=== PATIENT | female | born 1935 | race African-American/Black ===

== ENCOUNTER 2017-04-19 09:14 | Emergency (ER) | payer OTHER ==
[~2017-04-19] VITALS: Ht 157.5 cm; Wt 77.1 kg
[~2017-04-19 09:14] MED LIST: ADVAIR 2501 DISK W/1; ALBUTEROL17 G1; AMBIEN10 MG PO; AMBIEN5 MG; DOLOGEN CAPLET1 EACH PO; LASIX20 MG; LASIX40 MG; LEVAQUIN750 MG PO; MEDROL4 MG PO; OMEPRAZOLE40 MG PO; OSEL75CA PO; PEPCID20 MG; PLAVIX75 MG; PROVENTIL3 ML/2.5 M IH; SINGULAIR4 MG; TUSSI PRES-B L120 M1 PO; TUSSI-PRES LIQ120 ML PO; VASOTEC10 MG; XANAX1 MG; ZANTAC150 M3 PO; ZOLOFT25 MG; ZOLOFT25 MG PO; ZYNCOF 20-400120 ML PO
== END 2017-04-19 14:34 | disposition home or self-care (01) ==
LOC: ER 09:14
DX: I10 Essential (primary) hypertension (principal); J45.998 Other asthma

== ENCOUNTER → 2017-05-07 | Emergency (ER) | payer OTHER ==
[~2017-05-07] VITALS: Ht 149.9 cm; Wt 81.6 kg
[~2017-05-07] MED LIST changes: +ATENOLOL25 MG; +LEVALBUTER1.25 MG/3 IH; +NEURONTIN800 MG
== END | disposition home or self-care (01) ==
LOC: ER 09:15
DX: J45.901 Unspecified asthma with (acute) exacerbation (principal); N39.0 Urinary tract infection, site not specified; J11.1 Influenza due to unidentified influenza virus with other respiratory manifestations

== ENCOUNTER 2017-08-04 13:35 | Emergency (ER) | payer OTHER ==
[~2017-08-04] VITALS: Ht 152.4 cm; Wt 79.4 kg
== END 2017-08-04 18:31 | disposition home or self-care (01) ==
LOC: ER 13:35
DX: R06.02 Shortness of breath (principal); J11.1 Influenza due to unidentified influenza virus with other respiratory manifestations

== ENCOUNTER 2018-04-22 18:24 | Emergency (ER) | payer OTHER ==
[~2018-04-22] VITALS: Ht 152.4 cm; Wt 81.2 kg
== END 2018-04-22 21:32 | disposition home or self-care (01) ==
LOC: ER 18:24
DX: J06.9 Acute upper respiratory infection, unspecified (principal); R06.02 Shortness of breath

== ENCOUNTER 2018-07-07 17:43 | Emergency (ER) | payer OTHER ==
[~2018-07-07] VITALS: Ht 152.4 cm; Wt 77.1 kg
== END 2018-07-07 23:39 | disposition home or self-care (01) ==
LOC: ER 17:43
DX: J45.998 Other asthma (principal)

== ENCOUNTER 2018-07-16 20:04 | Emergency (ER) | payer OTHER ==
[~2018-07-16] VITALS: Ht 152.4 cm; Wt 79.4 kg
== END 2018-07-17 10:24 | disposition home or self-care (01) ==
LOC: ER 20:04
DX: J45.998 Other asthma (principal)

== ENCOUNTER 2018-08-30 13:31 | Emergency (ER) | payer OTHER ==
[~2018-08-30] VITALS: Ht 152.4 cm; Wt 81.2 kg
[2018-08-30] MEDS ORDERED: VASOTEC2.5 MG PO (14:30)
== END 2018-08-30 19:19 | disposition home or self-care (01) ==
LOC: ER 13:31
DX: J45.901 Unspecified asthma with (acute) exacerbation (principal); I16.0 Hypertensive urgency; I10 Essential (primary) hypertension

== ENCOUNTER 2018-09-09 15:36 | Emergency (ER) | payer OTHER ==
[~2018-09-09] VITALS: Ht 152.4 cm; Wt 80.7 kg
[~2018-09-09 15:36] MED LIST changes: +VASOTEC2.5 MG PO
== END 2018-09-09 19:09 | disposition home or self-care (01) ==
LOC: ER 15:36
DX: J06.9 Acute upper respiratory infection, unspecified (principal)

== ENCOUNTER 2018-10-18 15:09 | Emergency (ER) | payer OTHER ==
[~2018-10-18] VITALS: Ht 152.4 cm; Wt 81.2 kg
== END 2018-10-18 23:03 | disposition home or self-care (01) ==
LOC: ER 15:09
DX: J45.901 Unspecified asthma with (acute) exacerbation (principal)

== ENCOUNTER 2019-01-01 16:23 | Emergency (ER) | payer OTHER ==
[~2019-01-01] VITALS: Ht 160 cm; Wt 81.6 kg
[2019-01-01] MEDS ORDERED: NORVASC10 MG (16:30)
== END 2019-01-01 18:34 | disposition home or self-care (01) ==
LOC: ER 16:23
DX: I16.0 Hypertensive urgency (principal); I10 Essential (primary) hypertension; F41.1 Generalized anxiety disorder

== ENCOUNTER 2019-01-25 08:00 | Emergency (ER) | payer OTHER ==
[~2019-01-25] VITALS: Ht 152.4 cm; Wt 81.6 kg
[~2019-01-25 08:00] MED LIST changes: +NORVASC10 MG
[2019-01-25] MEDS ORDERED: SINGULAIR 10MG10 MG PO (08:25)
[2019-01-25] MEDS ORDERED: ZOLOFT50 MG PO (08:25)
[2019-01-25] MEDS ORDERED: NEURONTIN300 MG PO (08:28)
== END 2019-01-25 14:52 | disposition home or self-care (01) ==
LOC: ER 08:00
DX: J45.998 Other asthma (principal)

== ENCOUNTER → 2019-02-07 | Emergency (ER) | payer OTHER ==
[~2019-02-07] VITALS: Ht 152.4 cm; Wt 81.2 kg
[~2019-02-07] MED LIST changes: +MEDROLPACK PO; +NEURONTIN300 MG PO; +SINGULAIR 10MG10 MG PO; +TUSNEL LIQUID178 ML PO; +ZITHROMAX500 MG PO; +ZOLOFT50 MG PO
== END | disposition home or self-care (01) ==
LOC: ER 20:15
DX: J45.909 Unspecified asthma, uncomplicated (principal)

== ENCOUNTER 2019-04-18 10:10 | Inpatient (IN) | payer OTHER ==
[~2019-04-18] VITALS: Ht 152.4 cm; Wt 81.6 kg
[~2019-04-18 10:10] MED LIST changes: +AZITHROMYCIN500 MG PO
[2019-04-18] MEDS ORDERED: NEURONTIN300 MG PO (11:29)
[2019-04-18] MEDS ORDERED: NORVASC10 MG PO (11:29)
--- NOTE | 2019-04-18 11:30 | NUR ---
PACIENTE ALERTA ORIENTADA X 3 REFIERE TENER ASMA, PRESENTA TOS PRODUCTIVA Y DIFICULTAD PARA RESPIRAR SE ESCUCHA RALES AL ESCULTACION SE UBICA EN ASMA UNIT
--- NOTE | 2019-04-18 12:42 | NUR ---
PTE EVALUADA POR EL DR WILD QUIEN ORDENA EL [place]. MS Y BIRRIEL ORIENTA SOBRE EL MISMO, LO CUAL REFIERE ENTENDER, REALIZA PRUEBAS DE LABORATORIO Y ADMINISTRA MEDICAMETOS ADAN ORDEN MEDICA Y SIGUIENDO MEDIDA SASEPTICAS. ABG Y TERAPIAS RESPIRATORIAS NOTIFICADAS A MS DE TURNO.
--- NOTE | 2019-04-18 14:51 | NUR ---
TERAPIA RESPIRATORIA NOTIFICADA A MS FR[place]LIN
== END 2019-04-22 17:21 | disposition home or self-care (01) | DRG 194 ==
LOC: ER 10:10 → MEDJ 17:42
PROVIDERS: ADMIT Specialist
PROC: 4A033R1 Measurement of Arterial Saturation, Peripheral, Percutaneous Approach (ICD-10-PCS; principal; 2019-04-18)
PROC: 3E0F7GC Introduction of Other Therapeutic Substance into Respiratory Tract, Via Natural or Artificial Opening (ICD-10-PCS; 2019-04-18)
PROC: 8E0ZXY6 Isolation (ICD-10-PCS; 2019-04-18)
DX: J10.1 Influenza due to other identified influenza virus with other respiratory manifestations (principal); J45.41 Moderate persistent asthma with (acute) exacerbation; J20.0 Acute bronchitis due to Mycoplasma pneumoniae; I25.10 Atherosclerotic heart disease of native coronary artery without angina pectoris; Z95.5 Presence of coronary angioplasty implant and graft; I25.2 Old myocardial infarction; I10 Essential (primary) hypertension

== ENCOUNTER 2019-09-09 11:17 | Emergency (ER) | payer OTHER ==
[~2019-09-09] VITALS: Ht 152.4 cm; Wt 79.4 kg
[~2019-09-09 11:17] MED LIST changes: +NORVASC10 MG PO
== END 2019-09-09 17:41 | disposition left against medical advice (07) ==
LOC: ER 11:17
DX: Z53.20 Procedure and treatment not carried out because of patient's decision for unspecified reasons (principal)

== ENCOUNTER 2020-02-02 13:27 | Inpatient (IN) | payer OTHER ==
[~2020-02-02] VITALS: Ht 152.4 cm; Wt 81.6 kg
[2020-02-02] MEDS ORDERED: PROAIR HFA8.5 GM (13:34)
== END 2020-02-11 17:29 | disposition home or self-care (01) | DRG 177 ==
LOC: ER 13:27 → MEDJ 17:32
PROVIDERS: ADMIT Specialist; ATTEND Specialist
PROC: XW033E5 Introduction of Remdesivir Anti-infective into Peripheral Vein, Percutaneous Approach, New Technology Group 5 (ICD-10-PCS; principal; 2020-02-04)
DX: U07.1 COVID-19 (principal); J12.89 Other viral pneumonia; I10 Essential (primary) hypertension; J20.9 Acute bronchitis, unspecified; Z95.5 Presence of coronary angioplasty implant and graft; I25.10 Atherosclerotic heart disease of native coronary artery without angina pectoris

== ENCOUNTER 2020-02-12 09:38 | Emergency (ER) | payer OTHER ==
[~2020-02-12] VITALS: Ht 152.4 cm; Wt 72.6 kg
[~2020-02-12 09:38] MED LIST changes: +PROAIR HFA8.5 GM
== END 2020-02-12 15:30 | disposition home or self-care (01) ==
LOC: ER 09:38
DX: S20.223A Contusion of bilateral back wall of thorax, initial encounter (principal); R11.11 Vomiting without nausea; W01.198A Fall on same level from slipping, tripping and stumbling with subsequent striking against other object, initial encounter; Y93.89 Activity, other specified; Y92.128 Other place in nursing home as the place of occurrence of the external cause; Y99.8 Other external cause status

== ENCOUNTER 2020-06-15 09:42 | Emergency (ER) | payer OTHER ==
[~2020-06-15] VITALS: Ht 152.4 cm; Wt 81.6 kg
== END 2020-06-15 14:43 | disposition home or self-care (01) ==
LOC: ER 09:42
DX: J45.998 Other asthma (principal)

== ENCOUNTER 2020-10-20 13:58 | Outpatient (CLI) | payer OTHER | END 2020-10-20 14:02 | disposition home or self-care (01) | LOC: SONOGRAMA 13:58 | PROVIDERS: ATTEND Specialist | DX: Q61.02 Congenital multiple renal cysts (principal); K80.00 Calculus of gallbladder with acute cholecystitis without obstruction ==

== ENCOUNTER 2020-12-14 08:16 | Outpatient (CLI) | payer OTHER | END 2020-12-14 08:19 | disposition home or self-care (01) | LOC: RAD 08:16 | PROVIDERS: ATTEND Specialist | DX: J45.998 Other asthma (principal) ==

== ENCOUNTER 2022-10-21 15:38 | Emergency (ER) | payer OTHER ==
[~2022-10-21] VITALS: Ht 162.6 cm; Wt 86.2 kg
[~2022-10-21 15:38] MED LIST changes: +ATACAND HCT 321 EAC1; +AUGMENTIN600 MG/5 M; +CARAFATE1 GM; +MONTELUKAST SOD10 MG PO; +PANTOPRAZOLE SO40 MG PO; +PEPCID AC20 MG; +SIMVASTATIN80 MG
[2022-10-21] MEDS ORDERED: MUPIROCIN15 GM TOP (18:15)
[2022-10-21] MEDS ORDERED: CLEOCIN HCL300 MG PO (18:15)
== END 2022-10-21 19:52 | disposition home or self-care (01) ==
LOC: ER 15:38
PROVIDERS: General Practice
DX: L03.115 Cellulitis of right lower limb (principal); J45.909 Unspecified asthma, uncomplicated; I10 Essential (primary) hypertension; I73.89 Other specified peripheral vascular diseases; Z88.2 Allergy status to sulfonamides; Z91.013 Allergy to seafood; Z88.6 Allergy status to analgesic agent
CPT/HCPCS: 36415; 96365; 99284; J0696

== ENCOUNTER 2022-12-23 07:41 | Emergency (ER) | payer OTHER ==
[~2022-12-23] VITALS: Ht 152.4 cm; Wt 77.1 kg
[~2022-12-23 07:41] MED LIST changes: +CLEOCIN HCL300 MG PO; +MUPIROCIN15 GM TOP
[2022-12-23] MEDS ORDERED: GABAPENTIN300 M2 PO (08:12)
[2022-12-23 09:20] LABS: HEMATOCRIT 35.3 % (36.0-45.00); HEMOGLOBIN 11.3 g/dL (12.0-15.00); MEAN CELL VOLUME 86.3 fL (80.00-100.00); MEAN CORPUSCULAR HEMOGLOBIN 27.6 pg (27.00-32.0); PLATELET COUNT 154 K/uL (150-450); RED CELL DISTRIBUTION WIDTH 13.7 % (11.5-14.5)
[2022-12-23 10:48] LABS: CALCIUM 10.1 mg/dL (8.5-10.1); GFR 52.32; POTASSIUM 4.06 mEq/L (3.5-5.1)
== END 2022-12-23 11:24 | disposition home or self-care (01) ==
LOC: ER 07:41
PROVIDERS: General Practice
DX: R50.9 Fever, unspecified (principal); Z88.2 Allergy status to sulfonamides; Z91.013 Allergy to seafood; Z88.6 Allergy status to analgesic agent

== ENCOUNTER 2023-01-05 10:41 | Inpatient (IN) | payer OTHER ==
[~2023-01-05] VITALS: Ht 152.4 cm; Wt 81.6 kg
[~2023-01-05 10:41] MED LIST changes: +GABAPENTIN300 M2 PO
[2023-01-05 14:05] LABS: HEMATOCRIT 32.8 % (36.0-45.00); HEMOGLOBIN 10.9 g/dL (12.0-15.00); MEAN CELL VOLUME 86.1 fL (80.00-100.00); MEAN CORPUSCULAR HEMOGLOBIN 28.6 pg (27.00-32.0); MEAN CORPUSCULAR HGB CONC 33.2 g/dl (32.0-36.0); PLATELET COUNT 168 K/uL (150-450); RED BLOOD COUNT 3.81 M/uL (4.00-6.00); RED CELL DISTRIBUTION WIDTH 13.8 % (11.5-14.5)
[2023-01-05 14:31] LABS: BILIRUBIN TOTAL 0.43 mg/dL (0.3-1.2); BILIRUBIN,CONJUGATED 0.12 mg/dL (0.0-0.2); BILIRUBIN,UNCONJUGATED 0.31 mg/dL (0.0-0.6); CALCIUM 10.2 mg/dL (8.5-10.1); CREATININE SERUM 0.84 mg/dL (0.55-1.02); GFR 63.99; POTASSIUM 4.2 mEq/L (3.5-5.1); TOTAL PROTEIN 7.2 gm/dL (6.4-8.2)
[2023-01-05 16:32] LABS: URINE APPEARANCE Clear; URINE BILIRRUBIN Negative (NEGATIVE); URINE BLOOD Negative; URINE COLOR Yellow; URINE GLUCOSE Negative (NEGATIVE); URINE LEUKOCYTE Trace; URINE NITRATE Positive; URINE PROTEIN Negative (NEGATIVE); URINE UROBILINOGEN 0.2 E.U./dl
[2023-01-05 16:35] LABS: URINE BACTERIA 177.4 uL (0.0-1933); URINE RBC 2.2 uL (0.0-20.8); URINE WBC 27.6 uL (0.0-23.2)
[2023-01-05 16:37] LABS: URINE EPITHELIAL CELLS 0.9 uL (0.0-38.8)
[2023-01-05 21:40] LABS: INR 1.12; PROTHROMBIN TIME 11.7 SECONDS (9.0-11.5)
[2023-01-05 21:43] LABS: D DIMER 5.96 MG/L; PARTIAL THROMBOPLASTIN TIME 28.3 SECONDS (22.0-34.0)
[2023-01-06 18:05] LABS: PH,URINE 6.5 (5.0-8.0); URINE APPEARANCE Clear; URINE BACTERIA 181.4 uL (0.0-1933); URINE BILIRRUBIN Negative (NEGATIVE); URINE BLOOD Negative; URINE COLOR Yellow; URINE EPITHELIAL CELLS 6.8 uL (0.0-38.8); URINE GLUCOSE Negative (NEGATIVE); URINE LEUKOCYTE Negative; URINE NITRATE Negative; URINE PROTEIN Negative (NEGATIVE); URINE RBC 6.6 uL (0.0-20.8); URINE WBC 21.4 uL (0.0-23.2)
[2023-01-07 06:49] LABS: ALBUMIN 2.6 gm/dL (3.4-5.0); BILIRUBIN TOTAL 0.39 mg/dL (0.3-1.2); CALCIUM 9.7 mg/dL (8.5-10.1); CREATININE SERUM 0.74 mg/dL (0.55-1.02); GFR 74.06; GLOBULINA 3.3 G/DL (2.4-3.5); MAGNESIUM 1.5 mg/dL (1.8-2.4); PHOSPHOROUS 4.6 mg/dL (2.5-4.9); POTASSIUM 3.98 mEq/L (3.5-5.1); TOTAL PROTEIN 5.9 gm/dL (6.4-8.2)
[2023-01-07 06:58] LABS: C-REACTIVE PROTEIN 3.63 MG/DL (0.00-0.29)
[2023-01-08 07:16] LABS: HEMATOCRIT 32.2 % (36.0-45.00); HEMOGLOBIN 10.8 g/dL (12.0-15.00); MEAN CELL VOLUME 83.8 fL (80.00-100.00); MEAN CORPUSCULAR HEMOGLOBIN 28.1 pg (27.00-32.0); MEAN CORPUSCULAR HGB CONC 33.5 g/dl (32.0-36.0); PLATELET COUNT 177 K/uL (150-450); RED BLOOD COUNT 3.84 M/uL (4.00-6.00); RED CELL DISTRIBUTION WIDTH 14.1 % (11.5-14.5)
[2023-01-08] MEDS ORDERED: VITAMIN D3250 MCG (10:24)
[2023-01-08] MEDS ORDERED: FUROSEMIDE20 MG (10:24)
== END 2023-01-08 21:30 | disposition home or self-care (01) | DRG 301 ==
LOC: ER 10:41 → MEDI 20:25
PROVIDERS: General Practice; Internal Medicine Infectious Disease; ADMIT Internal Medicine; ATTEND Internal Medicine
PROC: B54DZZZ Ultrasonography of Bilateral Lower Extremity Veins (ICD-10-PCS; 2023-01-05)
PROC: 02HV33Z Insertion of Infusion Device into Superior Vena Cava, Percutaneous Approach (ICD-10-PCS; principal; 2023-01-08)
DX: I83.218 Varicose veins of right lower extremity with both ulcer of other part of lower extremity and inflammation (principal); I25.10 Atherosclerotic heart disease of native coronary artery without angina pectoris; I10 Essential (primary) hypertension; E78.5 Hyperlipidemia, unspecified; Z20.822 Contact with and (suspected) exposure to COVID-19

== ENCOUNTER 2023-02-03 09:57 | Emergency (ER) | payer OTHER ==
[~2023-02-03] VITALS: Ht 152.4 cm; Wt 70.8 kg
[~2023-02-03 09:57] MED LIST changes: +FUROSEMIDE20 MG; +VITAMIN D3250 MCG
[2023-02-03] MEDS ORDERED: SINGULAIR10 MG PO (12:03)
== END 2023-02-03 14:02 | disposition home or self-care (01) ==
LOC: ER 09:57
DX: R05.9 Cough, unspecified (principal); Z88.2 Allergy status to sulfonamides

== ENCOUNTER 2023-08-21 14:58 | Inpatient (IN) | payer OTHER ==
[~2023-08-21] VITALS: Ht 177.8 cm; Wt 68.0 kg
[~2023-08-21 14:58] MED LIST changes: +SINGULAIR10 MG PO
[2023-08-21] MEDS ORDERED: DEXTROSE 5 %-0.45 % SOD CHLORD 500 ML IV STA (19:13)
[2023-08-21] MEDS ORDERED: CEFTRIAXONE SODIUM 1,000 MG VIAL IV STA (19:14)
[2023-08-21] MEDS ORDERED: DIPHENHYDRAMINE HCL 50 MG/ML VIAL 1ML IM STA (19:15)
[2023-08-21] MEDS ORDERED: METHYLPREDNISOLONE SOD SUCC 40 MG VIAL IV STA (19:15)
[2023-08-21] MEDS ORDERED: CEFTRIAXONE SODIUM 1,000 MG VIAL ONE (19:48)
[2023-08-21] MEDS ORDERED: METHYLPREDNISOLONE SOD SUCC 40 MG VIAL ONE (19:48)
[2023-08-21] MEDS ORDERED: DIPHENHYDRAMINE HCL 50 MG/ML VIAL 1ML ONE (19:49)
[2023-08-21 20:00] LABS: HEMOGLOBIN 11.6 g/dL (12.0-15.00); MEAN CELL VOLUME 83.9 fL (80.00-100.00); MEAN CORPUSCULAR HEMOGLOBIN 27.7 pg (27.00-32.0); PLATELET COUNT 184 K/uL (150-450); RED BLOOD COUNT 4.17 M/uL (4.00-6.00); RED CELL DISTRIBUTION WIDTH 16.1 % (11.5-14.5)
[2023-08-21 20:18] LABS: PH,URINE 5.5 (5.0-8.0); URINE BILIRRUBIN Negative (NEGATIVE); URINE BLOOD Negative; URINE COLOR Yellow; URINE GLUCOSE Negative (NEGATIVE); URINE LEUKOCYTE Moderate; URINE NITRATE Positive; URINE PROTEIN 30 (NEGATIVE)
[2023-08-21 20:20] LABS: CALCIUM 9.7 mg/dL (8.5-10.1); CREATININE SERUM 0.96 mg/dL (0.55-1.02); GFR 54.85; POTASSIUM 3.94 mEq/L (3.5-5.1)
[2023-08-21 20:22] LABS: URINE EPITHELIAL CELLS 38.9 uL (0.0-38.8); URINE RBC 4.7 uL (0.0-20.8); URINE WBC 434.7 uL (0.0-23.2)
[2023-08-21 20:39] LABS: URINE BACTERIA > 9821.5 uL (0.0-1933)
[2023-08-21 20:40] LABS: URINE APPEARANCE SL CLOUDY
[2023-08-21] MEDS ORDERED: levoFLOXacin IN DEXTROSE 5 % 150 ML IV SCH (22:43)
[2023-08-21] MEDS ORDERED: ACETAMINOPHEN 500 MG GEL..CAP PO PRN (22:45)
[2023-08-21] MEDS ORDERED: ONDANSETRON HCL 4 MG in 0.9 % SODIUM CHLORIDE 50 ML IV PRN (22:45)
[2023-08-21] MEDS ORDERED: 0.9 % SODIUM CHLORIDE 1,000 ML IV SCH (22:45)
[2023-08-22 02:06] LABS: INR 1.16
[2023-08-22 02:13] LABS: D DIMER 7.18 MG/L; PARTIAL THROMBOPLASTIN TIME 27.8 SECONDS (22.0-34.0)
[2023-08-22] MEDS ORDERED: FAMOTIDINE/PF 20 MG/2 ML VIAL ONE (07:48)
[2023-08-22] MEDS ORDERED: ONDANSETRON HCL 2 MG/ML VIAL ONE (07:48)
[2023-08-22] MEDS ORDERED: levoFLOXacin IN DEXTROSE 5 % 5 MG/ML PIGGYBAG IV ONE (07:48)
[2023-08-22] MEDS ORDERED: FAMOTIDINE/PF 20 MG in 0.9 % SODIUM CHLORIDE 8 ML IV PUSH SCH (09:00)
[2023-08-22] MEDS ORDERED: IRBESARTAN 300 MG TABLET PO SCH (12:57)
[2023-08-22] MEDS ORDERED: METOPROLOL SUCCINATE 25 MG TAB.SR.24H PO SCH (12:58)
[2023-08-22] MEDS ORDERED: PERMETHRIN 60 GM TUBE TOP SCH (15:15)
[2023-08-22] MEDS ORDERED: SIMVASTATIN 20 MG TABLET PO SCH (17:00)
[2023-08-22] MEDS ORDERED: VANCOMYCIN HCL 1,000 MG in 0.9 % SODIUM CHLORIDE 250 ML IV SCH (17:00)
[2023-08-23 10:14] LABS: ALBUMIN 3.1 gm/dL (3.4-5.0); BILIRUBIN TOTAL 0.37 mg/dL (0.3-1.2); CALCIUM 9.5 mg/dL (8.5-10.1); CREATININE SERUM 0.89 mg/dL (0.55-1.02); GFR 59.86; GLOBULINA 3.4 G/DL (2.4-3.5); MAGNESIUM 1.7 mg/dL (1.8-2.4); PHOSPHOROUS 2.5 mg/dL (2.5-4.9); POTASSIUM 4.08 mEq/L (3.5-5.1); TOTAL PROTEIN 6.5 gm/dL (6.4-8.2)
[2023-08-23 10:17] LABS: C-REACTIVE PROTEIN 0.89 MG/DL (0.00-0.29)
[2023-08-23 11:00] LABS: HEMATOCRIT 32.7 % (36.0-45.00); HEMOGLOBIN 10.9 g/dL (12.0-15.00); MEAN CELL VOLUME 83.3 fL (80.00-100.00); MEAN CORPUSCULAR HEMOGLOBIN 27.8 pg (27.00-32.0); MEAN CORPUSCULAR HGB CONC 33.4 g/dl (32.0-36.0); PLATELET COUNT 184 K/uL (150-450); RED BLOOD COUNT 3.93 M/uL (4.00-6.00); RED CELL DISTRIBUTION WIDTH 16.1 % (11.5-14.5)
[2023-08-24] MEDS ORDERED: AMLODIPINE BESYLATE 5 MG TABLET PO SCH (09:00)
[2023-08-26] MEDS ORDERED: FAMOtidine 20 MG TABLET PO SCH (09:00)
[2023-08-26] MEDS ORDERED: VANCOMYCIN HCL 1,000 MG in 0.9 % SODIUM CHLORIDE 250 ML IV SCH (17:00)
[2023-08-27 07:53] LABS: HEMATOCRIT 31.9 % (36.0-45.00); HEMOGLOBIN 10.8 g/dL (12.0-15.00); MEAN CELL VOLUME 82.5 fL (80.00-100.00); MEAN CORPUSCULAR HGB CONC 33.9 g/dl (32.0-36.0); RED BLOOD COUNT 3.87 M/uL (4.00-6.00)
[2023-08-27 08:33] LABS: ALBUMIN 2.4 gm/dL (3.4-5.0); BILIRUBIN TOTAL 0.47 mg/dL (0.3-1.2); CALCIUM 8.4 mg/dL (8.5-10.1); CREATININE SERUM 0.67 mg/dL (0.55-1.02); GFR 83.06; MAGNESIUM 1.5 mg/dL (1.8-2.4); PHOSPHOROUS 2.4 mg/dL (2.5-4.9); POTASSIUM 3.45 mEq/L (3.5-5.1); TOTAL PROTEIN 5.4 gm/dL (6.4-8.2)
[2023-08-27 08:36] LABS: C-REACTIVE PROTEIN 8.32 MG/DL (0.00-0.29)
[2023-08-27 09:10] LABS: PLATELET COUNT 116 K/uL (150-450)
[2023-08-27] MEDS ORDERED: IPRATROPIUM BROMIDE 0.5 MG/2.5 ML AMPUL.NEB IH SCH (13:00)
[2023-08-27] MEDS ORDERED: GUAIFENESIN 200 MG/10 ML BLIST.PACK PO SCH (14:00)
[2023-08-29 08:43] LABS: HEMATOCRIT 29.8 % (36.0-45.00); HEMOGLOBIN 10.2 g/dL (12.0-15.00); MEAN CELL VOLUME 81.9 fL (80.00-100.00); MEAN CORPUSCULAR HEMOGLOBIN 28.1 pg (27.00-32.0); MEAN CORPUSCULAR HGB CONC 34.3 g/dl (32.0-36.0); RED BLOOD COUNT 3.64 M/uL (4.00-6.00); RED CELL DISTRIBUTION WIDTH 15.7 % (11.5-14.5)
[2023-08-29 09:26] LABS: ALBUMIN 2.2 gm/dL (3.4-5.0); BILIRUBIN TOTAL 0.44 mg/dL (0.3-1.2); CALCIUM 8.2 mg/dL (8.5-10.1); CREATININE SERUM 0.7 mg/dL (0.55-1.02); GFR 78.97; POTASSIUM 3.52 mEq/L (3.5-5.1); TOTAL PROTEIN 5.2 gm/dL (6.4-8.2)
[2023-08-29 09:27] LABS: C-REACTIVE PROTEIN 7.46 MG/DL (0.00-0.29); FERRITIN 401.1 NG/ML (8-252)
[2023-08-29 09:50] LABS: PLATELET COUNT 105 K/uL (150-450)
[2023-08-30 07:50] LABS: ALBUMIN 2.2 gm/dL (3.4-5.0); BILIRUBIN TOTAL 0.42 mg/dL (0.3-1.2); CALCIUM 8.2 mg/dL (8.5-10.1); CREATININE SERUM 0.61 mg/dL (0.55-1.02); GFR 92.56; POTASSIUM 3.84 mEq/L (3.5-5.1); TOTAL PROTEIN 5.2 gm/dL (6.4-8.2)
[2023-08-30 08:22] LABS: HEMATOCRIT 29.2 % (36.0-45.00); HEMOGLOBIN 10.1 g/dL (12.0-15.00); MEAN CELL VOLUME 81.8 fL (80.00-100.00); MEAN CORPUSCULAR HEMOGLOBIN 28.3 pg (27.00-32.0); MEAN CORPUSCULAR HGB CONC 34.6 g/dl (32.0-36.0); RED BLOOD COUNT 3.57 M/uL (4.00-6.00); RED CELL DISTRIBUTION WIDTH 15.9 % (11.5-14.5)
[2023-08-30] MEDS ORDERED: BENZONATATE 100 MG CAPSULE PO SCH (09:00)
[2023-08-30] MEDS ORDERED: FUROsemide 20 MG/2 ML VIAL IV SCH (09:00)
[2023-08-30 09:18] LABS: PLATELET COUNT 112 K/uL (150-450)
[2023-08-30] MEDS ORDERED: GUAIFENESIN/DEXTROMETHORPHAN 10ML BLIST.PACK PO SCH (09:46)
[2023-08-30] MEDS ORDERED: LEVALBUTEROL HCL 0.63 MG/3 ML SOLUTION IH SCH (09:47)
[2023-08-30 15:02] LABS: ABG PH 7.437 (7.35-7.45); ABG pCO2 35.6 mmHg (35-45); BASE EXCESS -0.2 mmol/l; BICARBONATE 23.5 mmol/l (23-25); Tco2 24.5 mmol/l
[2023-08-30 15:03] LABS: SaO2 98.2 %; allen test SATISFACTORY; o2 21 %; puncture site RADIAL RIGHT
[2023-08-30] MEDS ORDERED: IPRATROPIUM BROMIDE 0.5 MG/2.5 ML AMPUL.NEB IH SCH (17:00)
[2023-08-31 08:58] LABS: HEMATOCRIT 31.9 % (36.0-45.00); HEMOGLOBIN 10.8 g/dL (12.0-15.00); MEAN CELL VOLUME 82.4 fL (80.00-100.00); RED BLOOD COUNT 3.87 M/uL (4.00-6.00)
[2023-08-31 09:09] LABS: PLATELET COUNT 149 K/uL (150-450)
[2023-08-31 09:11] LABS: ALBUMIN 2.4 gm/dL (3.4-5.0); BILIRUBIN TOTAL 0.53 mg/dL (0.3-1.2); CALCIUM 8.5 mg/dL (8.5-10.1); CREATININE SERUM 0.68 mg/dL (0.55-1.02); GFR 81.66; GLOBULINA 3.4 G/DL (2.4-3.5); POTASSIUM 3.82 mEq/L (3.5-5.1); TOTAL PROTEIN 5.8 gm/dL (6.4-8.2)
[2023-08-31 09:23] LABS: C-REACTIVE PROTEIN 5.91 MG/DL (0.00-0.29)
[2023-08-31 10:13] LABS: FERRITIN 860.4 NG/ML (8-252)
[2023-09-01] MEDS ORDERED: BUDESONIDE 0.5 MG/2 ML AMPUL.NEB IH SCH (09:00)
[2023-09-01 09:12] LABS: HEMATOCRIT 30.9 % (36.0-45.00); HEMOGLOBIN 10.3 g/dL (12.0-15.00); MEAN CELL VOLUME 82.1 fL (80.00-100.00); MEAN CORPUSCULAR HEMOGLOBIN 27.3 pg (27.00-32.0); MEAN CORPUSCULAR HGB CONC 33.2 g/dl (32.0-36.0); PLATELET COUNT 176 K/uL (150-450); RED BLOOD COUNT 3.77 M/uL (4.00-6.00)
[2023-09-01 09:55] LABS: ALBUMIN 2.5 gm/dL (3.4-5.0); BILIRUBIN TOTAL 0.53 mg/dL (0.3-1.2); CALCIUM 8.8 mg/dL (8.5-10.1); CREATININE SERUM 0.82 mg/dL (0.55-1.02); GFR 65.79; GLOBULINA 3.7 G/DL (2.4-3.5); POTASSIUM 4.12 mEq/L (3.5-5.1); TOTAL PROTEIN 6.2 gm/dL (6.4-8.2)
[2023-09-02 08:15] LABS: HEMATOCRIT 28.3 % (36.0-45.00); HEMOGLOBIN 9.6 g/dL (12.0-15.00); MEAN CORPUSCULAR HEMOGLOBIN 27.9 pg (27.00-32.0); PLATELET COUNT 186 K/uL (150-450); RED BLOOD COUNT 3.44 M/uL (4.00-6.00); RED CELL DISTRIBUTION WIDTH 15.8 % (11.5-14.5)
[2023-09-02 09:30] LABS: ALBUMIN 2.4 gm/dL (3.4-5.0); BILIRUBIN TOTAL 0.44 mg/dL (0.3-1.2); CALCIUM 8.7 mg/dL (8.5-10.1); CREATININE SERUM 0.79 mg/dL (0.55-1.02); GFR 68.68; GLOBULINA 3.5 G/DL (2.4-3.5); POTASSIUM 4.22 mEq/L (3.5-5.1); TOTAL PROTEIN 5.9 gm/dL (6.4-8.2)
[2023-09-02 09:34] LABS: C-REACTIVE PROTEIN 2.88 MG/DL (0.00-0.29); FERRITIN 1588.2 NG/ML (8-252)
== END 2023-09-02 14:04 | disposition home or self-care (01) | DRG 602 ==
LOC: ER 14:59 → SEC-K 22:48 → MEDJ 08-22 12:50
PROVIDERS: Emergency Medicine; General Practice; Internal Medicine Infectious Disease; ADMIT Internal Medicine; ATTEND Internal Medicine
PROC: B44HZZZ Ultrasonography of Bilateral Lower Extremity Arteries (ICD-10-PCS; principal; 2023-08-21)
PROC: BB24ZZZ Computerized Tomography (CT Scan) of Bilateral Lungs (ICD-10-PCS; 2023-08-28)
PROC: 3E0F7GC Introduction of Other Therapeutic Substance into Respiratory Tract, Via Natural or Artificial Opening (ICD-10-PCS; 2023-08-28)
DX: L03.115 Cellulitis of right lower limb (principal); U07.1 COVID-19; L97.819 Non-pressure chronic ulcer of other part of right lower leg with unspecified severity; B37.49 Other urogenital candidiasis; B86 Scabies; I83.018 Varicose veins of right lower extremity with ulcer other part of lower leg; I87.2 Venous insufficiency (chronic) (peripheral); J45.909 Unspecified asthma, uncomplicated; I11.9 Hypertensive heart disease without heart failure; B95.62 Methicillin resistant Staphylococcus aureus infection as the cause of diseases classified elsewhere

== ENCOUNTER 2023-10-15 12:03 | Inpatient (IN) | payer OTHER ==
[~2023-10-15] VITALS: Ht 152.4 cm; Wt 68.0 kg
[2023-10-15] MEDS ORDERED: COZAAR25 MG (12:11)
[2023-10-15] MEDS ORDERED: CIPROFLOXACIN IN 5 % DEXTROSE 400 MG/200 ML PIGGYBAG IV STA (13:18)
[2023-10-15] MEDS ORDERED: CIPROFLOXACIN IN 5 % DEXTROSE 400 MG/200 ML PIGGYBAG IV ONE (13:23)
[2023-10-15 13:46] LABS: HEMATOCRIT 35.2 % (36.0-45.00); HEMOGLOBIN 11.6 g/dL (12.0-15.00); MEAN CELL VOLUME 87.2 fL (80.00-100.00); MEAN CORPUSCULAR HEMOGLOBIN 28.8 pg (27.00-32.0); PLATELET COUNT 179 K/uL (150-450); RED BLOOD COUNT 4.04 M/uL (4.00-6.00); RED CELL DISTRIBUTION WIDTH 16.1 % (11.5-14.5)
[2023-10-15 14:23] LABS: ALBUMIN 3.3 gm/dL (3.4-5.0); ALKALINE PHOSPHATASE 143 U/L (50-136); ALT/SGPT 21 U/L (12-78); ANION GAP 8 (10.0-20.0); AST/SGOT 19 U/L (15-37); BILIRUBIN TOTAL 0.27 mg/dL (0.3-1.2); BILIRUBIN,CONJUGATED < 0.10 mg/dL (0.0-0.2); BILIRUBIN,UNCONJUGATED 0.17 mg/dL (0.0-0.6); BLOOD UREA NITROGEN 24 mg/dL (7-18); BUN CREA RATIO 19 (7.0-25.0); CALCIUM 9.8 mg/dL (8.5-10.1); CARBON DIOXIDE 29 mEq/L (21-32); CHLORIDE 111 mmol/L (98-107); CREATININE SERUM 1.26 mg/dL (0.55-1.02); GFR 40.08; GLUCOSE FASTING 112 mg/dL (65-100); OSMOLALITY SERUM 292 MOSM/KG (275-295); POTASSIUM 4.24 mEq/L (3.5-5.1); SODIUM 144 mmol/L (136-145); TOTAL PROTEIN 7.8 gm/dL (6.4-8.2)
[2023-10-15 16:28] LABS: PH,URINE 5.5 (5.0-8.0); URINE APPEARANCE Cloudy; URINE BILIRRUBIN Negative (NEGATIVE); URINE BLOOD Negative; URINE COLOR Dark Yellow; URINE GLUCOSE Negative (NEGATIVE); URINE KETONE Trace (NEGATIVE); URINE LEUKOCYTE Large; URINE NITRATE Positive; URINE PROTEIN Trace (NEGATIVE); URINE UROBILINOGEN 0.2 E.U./dl
[2023-10-15 16:33] LABS: URINE CAST 13.13 uL (0.0-1.40); URINE EPITHELIAL CELLS 33.8 uL (0.0-38.8); URINE RBC 2.2 uL (0.0-20.8)
[2023-10-15] MEDS ORDERED: 0.9 % SODIUM CHLORIDE 1,000 ML IV SCH (21:30)
[2023-10-15] MEDS ORDERED: ACETAMINOPHEN 500 MG GEL..CAP PO PRN (21:45)
[2023-10-16 00:55] VITALS: BP 124/45
[2023-10-16] MEDS ORDERED: ACETAMINOPHEN 500 MG GEL..CAP PO ONE (01:29)
[2023-10-16 02:45] LABS: INR 1.11
[2023-10-16] MEDS ORDERED: levoFLOXacin IN DEXTROSE 5 % 500MG/100ML PIGGYBAG IV ONE (07:29)
[2023-10-16] MEDS ORDERED: FAMOTIDINE/PF 20 MG/2 ML VIAL ONE (07:30)
[2023-10-16 08:02] VITALS: BP 148/70; O2SAT 100
[2023-10-16] MEDS ORDERED: levoFLOXacin IN DEXTROSE 5 % 100 ML IV SCH (09:00)
[2023-10-16] MEDS ORDERED: FAMOTIDINE/PF 20 MG in 0.9 % SODIUM CHLORIDE 8 ML IV PUSH SCH (09:00)
[2023-10-16] MEDS ORDERED: LOSARTAN POTASSIUM 25 MG TABLET PO SCH (09:00)
[2023-10-16 15:36] VITALS: BP 161/68; O2SAT 99
[2023-10-16] MEDS ORDERED: MONTELUKAST SODIUM 10 MG TABLET PO SCH (17:00)
[2023-10-16] MEDS ORDERED: LACTOBACILLUS ACIDOPHILUS 1 CAP CAP PO SCH (17:00)
[2023-10-16] MEDS ORDERED: VANCOMYCIN HCL 1,000 MG VIAL IV SCH (17:00)
[2023-10-16 18:57] VITALS: BP 160/72; O2SAT 98
[2023-10-17] VITALS: BP 151/66
[2023-10-17 06:15] LABS: HEMOGLOBIN 11.1 g/dL (12.0-15.00); MEAN CELL VOLUME 86.9 fL (80.00-100.00); MEAN CORPUSCULAR HEMOGLOBIN 29.3 pg (27.00-32.0); MEAN CORPUSCULAR HGB CONC 33.7 g/dl (32.0-36.0); PLATELET COUNT 162 K/uL (150-450); RED BLOOD COUNT 3.79 M/uL (4.00-6.00); RED CELL DISTRIBUTION WIDTH 15.2 % (11.5-14.5)
[2023-10-17 06:59] LABS: ALBUMIN 2.8 gm/dL (3.4-5.0); BILIRUBIN TOTAL 0.33 mg/dL (0.3-1.2); CALCIUM 9.2 mg/dL (8.5-10.1); CREATININE SERUM 0.71 mg/dL (0.55-1.02); GFR 77.69; GLOBULINA 3.4 G/DL (2.4-3.5); MAGNESIUM 1.7 mg/dL (1.8-2.4); PHOSPHOROUS 3.6 mg/dL (2.5-4.9); POTASSIUM 4.27 mEq/L (3.5-5.1); TOTAL PROTEIN 6.2 gm/dL (6.4-8.2)
[2023-10-17 07:00] LABS: C-REACTIVE PROTEIN 1.37 MG/DL (0.00-0.29)
[2023-10-17 08:27] VITALS: BP 150/70
[2023-10-17] MEDS ORDERED: FAMOTIDINE/PF 20 MG/2 ML VIAL ONE (08:38)
[2023-10-17] MEDS ORDERED: MUPIROCIN 15 GM OINT..GM TUBE NASAL SCH (17:00)
[2023-10-17] MEDS ORDERED: MUPIROCIN 22 GM OINT..GM TUBE NASAL SCH (17:00)
[2023-10-17] MEDS ORDERED: KETOROLAC TROMETHAMINE 30 MG VIAL IV PRN (18:00)
[2023-10-17 18:27] VITALS: BP 156/58; O2SAT 97
[2023-10-17] MEDS ORDERED: CHLORHEXIDINE GLUCONATE 120 ML BOTTLE TOP SCH (21:00)
[2023-10-18 02:39] VITALS: BP 172/76; O2SAT 99
[2023-10-18 08:57] VITALS: BP 152/75
[2023-10-18] MEDS ORDERED: levoFLOXacin IN DEXTROSE 5 % 150 ML IV SCH (09:00)
[2023-10-18 17:53] VITALS: BP 159/74; O2SAT 98
[2023-10-19 02:30] VITALS: BP 160/81; O2SAT 99
[2023-10-19 07:59] LABS: HEMATOCRIT 36.7 % (36.0-45.00); HEMOGLOBIN 12.3 g/dL (12.0-15.00); MEAN CELL VOLUME 87.5 fL (80.00-100.00); MEAN CORPUSCULAR HEMOGLOBIN 29.4 pg (27.00-32.0); MEAN CORPUSCULAR HGB CONC 33.6 g/dl (32.0-36.0); PLATELET COUNT 196 K/uL (150-450); RED CELL DISTRIBUTION WIDTH 15.5 % (11.5-14.5)
[2023-10-19 08:28] LABS: CALCIUM 9.3 mg/dL (8.5-10.1); CREATININE SERUM 0.83 mg/dL (0.55-1.02); GFR 64.88; POTASSIUM 4.33 mEq/L (3.5-5.1)
[2023-10-19 10:26] VITALS: BP 135/70
[2023-10-19 17:44] VITALS: BP 177/74; O2SAT 98
[2023-10-20 02:28] VITALS: BP 145/73; O2SAT 98
[2023-10-20 10:11] VITALS: BP 157/80
[2023-10-20] MEDS ORDERED: MEROPENEM 500 MG/VIAL VIAL IV SCH (17:00)
[2023-10-20] MEDS ORDERED: VANCOMYCIN HCL 5 MG/ML REDILUIDO IV SCH (17:00)
[2023-10-20] MEDS ORDERED: DIPHENHYDRAMINE HCL 50 MG/ML VIAL 1ML IV SCH (17:00)
[2023-10-20 18:52] VITALS: BP 176/75
[2023-10-21 02:09] VITALS: BP 176/66
[2023-10-21] MEDS ORDERED: FAMOTIDINE/PF 20 MG/2 ML VIAL ONE (08:24)
[2023-10-21 08:35] LABS: ALBUMIN 2.8 gm/dL (3.4-5.0); BILIRUBIN TOTAL 0.42 mg/dL (0.3-1.2); CALCIUM 9.5 mg/dL (8.5-10.1); CREATININE SERUM 0.72 mg/dL (0.55-1.02); GFR 76.44; GLOBULINA 3.7 G/DL (2.4-3.5); MAGNESIUM 1.8 mg/dL (1.8-2.4); PHOSPHOROUS 3.7 mg/dL (2.5-4.9); POTASSIUM 4.83 mEq/L (3.5-5.1); TOTAL PROTEIN 6.5 gm/dL (6.4-8.2)
[2023-10-21 09:12] VITALS: BP 180/88; O2SAT 100
[2023-10-21 13:55] LABS: HEMATOCRIT 35.6 % (36.0-45.00); HEMOGLOBIN 11.8 g/dL (12.0-15.00); MEAN CELL VOLUME 86.7 fL (80.00-100.00); MEAN CORPUSCULAR HEMOGLOBIN 28.8 pg (27.00-32.0); MEAN CORPUSCULAR HGB CONC 33.2 g/dl (32.0-36.0); PLATELET COUNT 166 K/uL (150-450); RED BLOOD COUNT 4.11 M/uL (4.00-6.00); RED CELL DISTRIBUTION WIDTH 15.9 % (11.5-14.5)
[2023-10-21 17:32] LABS: URINE APPEARANCE Clear; URINE BILIRRUBIN Negative (NEGATIVE); URINE BLOOD Negative; URINE COLOR Yellow; URINE GLUCOSE Negative (NEGATIVE); URINE KETONE Negative (NEGATIVE); URINE LEUKOCYTE Trace; URINE NITRATE Negative; URINE PROTEIN 30 (NEGATIVE); URINE UROBILINOGEN 0.2 E.U./dl
[2023-10-21 17:35] LABS: URINE BACTERIA 28.9 uL (0.0-1933); URINE EPITHELIAL CELLS 27.8 uL (0.0-38.8); URINE RBC 14.3 uL (0.0-20.8)
[2023-10-21 17:43] LABS: URINE CAST 1.37 uL (0.0-1.40)
[2023-10-21 19:30] VITALS: BP 160/74
[2023-10-21] MEDS ORDERED: NIFEDIPINE 30 MG TAB.SA.OSM PO SCH (21:16)
[2023-10-22 03:26] VITALS: BP 128/72; O2SAT 99
[2023-10-22] MEDS ORDERED: FAMOtidine 20 MG TABLET PO SCH (09:00)
[2023-10-22 09:22] VITALS: BP 145/76
[2023-10-22 18:09] VITALS: BP 172/69
[2023-10-22] MEDS ORDERED: BENZONATATE 100 MG CAPSULE PO SCH (21:18)
[2023-10-23 01:46] VITALS: BP 154/77; O2SAT 98
[2023-10-23] MEDS ORDERED: BENZONATATE 200 MG CAPSULE PO SCH (09:00)
[2023-10-23 09:22] VITALS: BP 134/69
[2023-10-23] MEDS ORDERED: ACETAMINOPHEN 500 MG GEL..CAP PO PRN (14:45)
[2023-10-23 17:46] VITALS: BP 142/67
[2023-10-24 02:38] VITALS: BP 132/73; O2SAT 98
[2023-10-24 09:25] VITALS: BP 142/73; O2SAT 96
[2023-10-24 19:16] VITALS: BP 141/61
[2023-10-25 04:08] VITALS: BP 148/65; O2SAT 100
[2023-10-25 10:23] VITALS: BP 135/63
[2023-10-25] MEDS ORDERED: LEVALBUTEROL HCL 0.63 MG/3 ML SOLUTION IH SCH (17:00)
[2023-10-25] MEDS ORDERED: GUAIFENESIN/DEXTROMETHORPHAN 10ML BLIST.PACK PO SCH (18:00)
[2023-10-25 19:24] VITALS: BP 134/70; O2SAT 97
[2023-10-26 02:26] VITALS: BP 122/66; O2SAT 97
[2023-10-26 08:56] LABS: HEMATOCRIT 33.4 % (36.0-45.00); MEAN CELL VOLUME 88.4 fL (80.00-100.00); MEAN CORPUSCULAR HEMOGLOBIN 29.3 pg (27.00-32.0); MEAN CORPUSCULAR HGB CONC 33.1 g/dl (32.0-36.0); PLATELET COUNT 155 K/uL (150-450); RED BLOOD COUNT 3.78 M/uL (4.00-6.00); RED CELL DISTRIBUTION WIDTH 15.7 % (11.5-14.5)
[2023-10-26 09:08] LABS: ALBUMIN 2.9 gm/dL (3.4-5.0); CALCIUM 9.5 mg/dL (8.5-10.1); CREATININE SERUM 0.72 mg/dL (0.55-1.02); GFR 76.44; PHOSPHOROUS 3.6 mg/dL (2.5-4.9); POTASSIUM 4.2 mEq/L (3.5-5.1)
[2023-10-26 09:41] VITALS: BP 132/50
[2023-10-26 20:44] VITALS: BP 154/68; O2SAT 97
[2023-10-27 03:06] VITALS: BP 152/70; O2SAT 99
[2023-10-27 09:54] VITALS: BP 139/78
[2023-10-27 16:00] VITALS: BP 169/79
[2023-10-27] MEDS ORDERED: METHYLPREDNISOLONE SOD SUCC 40 MG VIAL IV SCH (17:00)
[2023-10-28 03:03] VITALS: BP 170/92
[2023-10-28 10:03] VITALS: BP 175/79; O2SAT 96
[2023-10-28] MEDS ORDERED: NIFEDIPINE ER30 M1 PO (17:31)
[2023-10-28 19:02] VITALS: BP 150/80; O2SAT 98
== END 2023-10-28 20:59 | disposition home or self-care (01) | DRG 571 ==
LOC: ER 12:05 → MEDJ 22:10 → SEC-K 22:10 → MEDJ 10-16 15:24
PROVIDERS: General Practice; Internal Medicine; Internal Medicine Infectious Disease; ADMIT Internal Medicine; ATTEND Internal Medicine
PROC: B54BZZZ Ultrasonography of Right Lower Extremity Veins (ICD-10-PCS; 2023-10-15)
PROC: 0JBP0ZZ Excision of Left Lower Leg Subcutaneous Tissue and Fascia, Open Approach (ICD-10-PCS; principal; 2023-10-16)
PROC: 3E0F7GC Introduction of Other Therapeutic Substance into Respiratory Tract, Via Natural or Artificial Opening (ICD-10-PCS; 2023-10-25)
DX: L03.116 Cellulitis of left lower limb (principal); L97.219 Non-pressure chronic ulcer of right calf with unspecified severity; L97.829 Non-pressure chronic ulcer of other part of left lower leg with unspecified severity; N39.0 Urinary tract infection, site not specified; L03.115 Cellulitis of right lower limb; I83.012 Varicose veins of right lower extremity with ulcer of calf; L30.8 Other specified dermatitis; B35.3 Tinea pedis; J98.01 Acute bronchospasm; M25.512 Pain in left shoulder; M75.32 Calcific tendinitis of left shoulder; D64.9 Anemia, unspecified; B96.20 Unspecified Escherichia coli [E. coli] as the cause of diseases classified elsewhere; Z88.2 Allergy status to sulfonamides; Z88.6 Allergy status to analgesic agent; Z91.013 Allergy to seafood

== ENCOUNTER 2024-01-28 10:56 | Outpatient (CLI) | payer OTHER ==
[~2024-01-28 10:56] MED LIST changes: +COZAAR25 MG; +NIFEDIPINE ER30 M1 PO
== END 2024-01-28 11:09 | disposition home or self-care (01) ==
LOC: MRI 10:56
PROVIDERS: ATTEND Physical Medicine & Rehabilitation Pain Medicine
DX: M48.07 Spinal stenosis, lumbosacral region (principal)
CPT/HCPCS: 72148

== ENCOUNTER 2024-03-06 19:41 | Inpatient (IN) | payer OTHER ==
[~2024-03-06] VITALS: Ht 157.5 cm; Wt 77.1 kg
[2024-03-06] MEDS ORDERED: SIMVASTATIN20 MG PO (20:12)
[2024-03-06] MEDS ORDERED: AMLODIPINE BESY10 MG PO (20:12)
[2024-03-06] MEDS ORDERED: LOSARTAN POTAS100 MG PO (20:12)
[2024-03-06] MEDS ORDERED: METOPROLOL SUCC50 MG PO (20:13)
[2024-03-06] MEDS ORDERED: levoFLOXacin IN DEXTROSE 5 % 500MG/100ML PIGGYBAG IV ONE ×2 (21:00→22:29)
[2024-03-06] MEDS ORDERED: NIFEDIPINE 10 MG CAPSULE PO ONE (21:00)
[2024-03-06] MEDS ORDERED: IPRATROPIUM BROMIDE 0.5 MG/2.5 ML AMPUL.NEB IH ONE ×2 (21:00→21:51)
[2024-03-06] MEDS ORDERED: LEVALBUTEROL HCL 1.25 MG/3 ML SOLUTION IH ONE ×2 (21:00→21:51)
[2024-03-06] MEDS ORDERED: FAMOtidine 10 MG/ML (4ML VIAL) IV ONE (21:00)
[2024-03-06] MEDS ORDERED: METHYLPREDNISOLONE SOD SUCC 40 MG VIAL IV ONE (22:15)
[2024-03-06 22:16] LABS: ABG PH 7.474 (7.35-7.45); ABG PO2 77.6 mmHg (80-100); ABG pCO2 35.5 mmHg (35-45); BASE EXCESS 2.2 mmol/l; BICARBONATE 25.5 mmol/l (23-25); SaO2 96.3 %; Tco2 26.6 mmol/l; o2 21 %
[2024-03-06 22:17] LABS: allen test SATISFACTORY; puncture site RADIAL LEFT
[2024-03-06] MEDS ORDERED: METHYLPREDNISOLONE SOD SUCC 40 MG VIAL ONE (22:29)
[2024-03-06] MEDS ORDERED: ACETAMINOPHEN 500 MG GEL..CAP PO ONE (22:29)
[2024-03-06] MEDS ORDERED: FAMOTIDINE/PF 20 MG/2 ML VIAL ONE (22:30)
[2024-03-06] MEDS ORDERED: ACETAMINOPHEN 325 MG TABLET PO ONE (22:30)
[2024-03-06] MEDS ORDERED: TRAMADOL HCL 50 MG TABLET PO ONE (22:30)
[2024-03-06 23:37] LABS: HEMATOCRIT 31.6 % (36.0-45.00); HEMOGLOBIN 10.7 g/dL (12.0-15.00); MEAN CELL VOLUME 85.1 fL (80.00-100.00); MEAN CORPUSCULAR HEMOGLOBIN 28.8 pg (27.00-32.0); MEAN CORPUSCULAR HGB CONC 33.8 g/dl (32.0-36.0); PLATELET COUNT 178 K/uL (150-450); RED BLOOD COUNT 3.71 M/uL (4.00-6.00)
[2024-03-06 23:40] LABS: PH,URINE 7.5 (5.0-8.0); URINE APPEARANCE Clear; URINE BILIRRUBIN Negative (NEGATIVE); URINE BLOOD Small; URINE COLOR Yellow; URINE GLUCOSE Negative (NEGATIVE); URINE KETONE Negative (NEGATIVE); URINE LEUKOCYTE Negative; URINE NITRATE Negative; URINE UROBILINOGEN 0.2 E.U./dl
[2024-03-06 23:44] LABS: URINE BACTERIA 7.3 uL (0.0-1933); URINE RBC 14.2 uL (0.0-20.8)
[2024-03-06 23:58] LABS: ALBUMIN 3.1 gm/dL (3.4-5.0); BILIRUBIN TOTAL 0.56 mg/dL (0.3-1.2); CALCIUM 9.7 mg/dL (8.5-10.1); CREATININE SERUM 0.7 mg/dL (0.55-1.02); GFR 78.79; GLOBULINA 4.1 G/DL (2.4-3.5); POTASSIUM 3.87 mEq/L (3.5-5.1); TOTAL PROTEIN 7.2 gm/dL (6.4-8.2); URINE CAST 0.14 uL (0.0-1.40); URINE EPITHELIAL CELLS 0.9 uL (0.0-38.8); URINE PROTEIN 100 (NEGATIVE); URINE WBC 1.2 uL (0.0-23.2)
[2024-03-07 00:39] LABS: D DIMER 2.85 MG/L
[2024-03-07] MEDS ORDERED: 0.9 % SODIUM CHLORIDE 1,000 ML IV STA (01:13)
[2024-03-07] MEDS ORDERED: NITROGLYCERIN IN 5 % DEXTROSE 50 MG/250 ML KIT IV STA (01:15)
[2024-03-07] MEDS ORDERED: METHYLPREDNISOLONE SOD SUCC 125 MG VIAL IV STA (01:17)
[2024-03-07] MEDS ORDERED: IPRATROPIUM/ALBUTEROL SULFATE 3 ML AMPUL.NEB IH SCH (01:17)
[2024-03-07] MEDS ORDERED: FUROsemide 20 MG/2 ML VIAL IV STA (01:22)
[2024-03-07] MEDS ORDERED: IPRATROPIUM/ALBUTEROL SULFATE 3 ML AMPUL.NEB IH ONE ×3 (01:26→12:09)
[2024-03-07] MEDS ORDERED: METHYLPREDNISOLONE SOD SUCC 125 MG VIAL ONE (01:32)
[2024-03-07] MEDS ORDERED: FUROsemide 20 MG/2 ML VIAL ONE (01:32)
[2024-03-07] MEDS ORDERED: NITROGLYCERIN IN 5 % DEXTROSE 50 MG/250 ML BOTTLE IV ONE (01:33)
[2024-03-07] MEDS ORDERED: METHYLPREDNISOLONE SOD SUCC 40 MG VIAL IV SCH (09:00)
[2024-03-07] MEDS ORDERED: LOSARTAN POTASSIUM 100 MG TABLET PO ONE (14:45)
[2024-03-07] MEDS ORDERED: METOPROLOL SUCCINATE 50 MG TAB.SR.24H PO SCH (15:00)
[2024-03-07] MEDS ORDERED: SIMVASTATIN 20 MG TABLET PO SCH (15:00)
[2024-03-07] MEDS ORDERED: MONTELUKAST SODIUM 10 MG TABLET PO SCH (15:00)
[2024-03-07] MEDS ORDERED: GABAPENTIN 300 MG CAPSULE PO ONE (15:00)
[2024-03-07] MEDS ORDERED: IPRATROPIUM BROMIDE 0.5 MG/2.5 ML AMPUL.NEB IH ONE (16:45)
[2024-03-07] MEDS ORDERED: FUROsemide 20 MG/2 ML VIAL IV SCH (18:07)
[2024-03-07] MEDS ORDERED: ENOXAPARIN SODIUM 80 MG/0.8 ML SYRINGE SUBCUTANEO SCH (18:13)
[2024-03-07] MEDS ORDERED: ATORVASTATIN CALCIUM 20 MG TABLET PO SCH (18:13)
[2024-03-07] MEDS ORDERED: NITROGLYCERIN IN 5 % DEXTROSE 250 ML IV SCH (18:15)
[2024-03-07] MEDS ORDERED: INSULIN LISPRO 1,000 UNIT/10 ML UNITS SUBCUTANEO PRN (18:30)
[2024-03-07] MEDS ORDERED: AZITHROMYCIN 500 MG VIAL IV SCH (18:30)
[2024-03-07] MEDS ORDERED: DEXTROSE 50 % IN WATER 0.5 G/ML DISP.SYRIN IV PRN (18:30)
[2024-03-07] MEDS ORDERED: FAMOTIDINE/PF 20 MG in 0.9 % SODIUM CHLORIDE 8 ML IV PUSH SCH (18:31)
[2024-03-07 23:33] LABS: INR 1.31; PARTIAL THROMBOPLASTIN TIME 33.1 SECONDS (22.0-34.0)
[2024-03-07 23:38] LABS: ALBUMIN 2.8 gm/dL (3.4-5.0); BILIRUBIN TOTAL 0.31 mg/dL (0.3-1.2); CALCIUM 9.3 mg/dL (8.5-10.1); CREATININE SERUM 0.99 mg/dL (0.55-1.02); GFR 52.81; GLOBULINA 4.8 G/DL (2.4-3.5); POTASSIUM 4.25 mEq/L (3.5-5.1); TOTAL PROTEIN 7.6 gm/dL (6.4-8.2)
[2024-03-08] VITALS (8 sets, daily range): BP systolic 128–171; BP diastolic 63–80; O2SAT 93–98
[2024-03-08] MEDS ORDERED: NITROGLYCERIN IN 5 % DEXTROSE 250 ML IV SCH (06:30)
[2024-03-08 07:25] LABS: URINE BACTERIA 25.7 uL (0.0-1933); URINE EPITHELIAL CELLS 4.2 uL (0.0-38.8); URINE RBC 14.5 uL (0.0-20.8); URINE WBC 7.2 uL (0.0-23.2)
[2024-03-08] MEDS ORDERED: AZITHROMYCIN 500 MG VIAL IV ONE (07:47)
[2024-03-08 08:14] LABS: URINE APPEARANCE CLEAR; URINE BILIRRUBIN NEGATIVE (NEGATIVE); URINE BLOOD MODERATE; URINE COLOR YELLOW; URINE GLUCOSE NEGATIVE (NEGATIVE); URINE KETONE NEGATIVE (NEGATIVE); URINE LEUKOCYTE NEGATIVE; URINE NITRATE NEGATIVE; URINE PROTEIN 30 (NEGATIVE); URINE UROBILINOGEN 0.2 E.U./dl
[2024-03-08] MEDS ORDERED: HALOPERIDOL LACTATE 5 MG/ML AMPUL IM NR (10:45)
[2024-03-09] VITALS (9 sets, daily range): BP systolic 145–176; BP diastolic 74–80; O2SAT 95–98
[2024-03-09] MEDS ORDERED: AZITHROMYCIN 500 MG VIAL IV ONE (08:26)
[2024-03-09] MEDS ORDERED: PANTOPRAZOLE SODIUM 40 MG/VIAL VIAL IV NR (10:00)
[2024-03-09] MEDS ORDERED: levoFLOXacin IN DEXTROSE 5 % 500MG/100ML PIGGYBAG IV NR (10:00)
[2024-03-09] MEDS ORDERED: METOPROLOL SUCCINATE 25 MG TAB.SR.24H PO NR (10:00)
[2024-03-09] MEDS ORDERED: BUDESONIDE 0.5 MG/2 ML AMPUL.NEB IH NR (10:00)
[2024-03-09] MEDS ORDERED: LOSARTAN POTASSIUM 50 MG TABLET PO NR (10:00)
[2024-03-09] MEDS ORDERED: HALOPERIDOL 1 MG TABLET PO NR (10:00)
[2024-03-09] MEDS ORDERED: FLUCONAZOLE IN NACL,ISO-OSM 200 MG/100 ML PIGGYBAG IV NR (10:00)
[2024-03-09 14:48] LABS: HEMATOCRIT 30.2 % (36.0-45.00); MEAN CELL VOLUME 85.3 fL (80.00-100.00); MEAN CORPUSCULAR HGB CONC 33.5 g/dl (32.0-36.0); PLATELET COUNT 217 K/uL (150-450); RED BLOOD COUNT 3.54 M/uL (4.00-6.00); RED CELL DISTRIBUTION WIDTH 15.3 % (11.5-14.5)
[2024-03-09 14:56] LABS: HEMOGLOBIN 10.1 g/dL (12.0-15.00); MEAN CORPUSCULAR HEMOGLOBIN 28.5 pg (27.00-32.0)
[2024-03-09 15:33] LABS: ALBUMIN 2.5 gm/dL (3.4-5.0); BILIRUBIN TOTAL 0.33 mg/dL (0.3-1.2); CALCIUM 8.4 mg/dL (8.5-10.1); CREATININE SERUM 0.93 mg/dL (0.55-1.02); GFR 56.76; GLOBULINA 3.9 G/DL (2.4-3.5); POTASSIUM 3.61 mEq/L (3.5-5.1); TOTAL PROTEIN 6.4 gm/dL (6.4-8.2)
[2024-03-09] MEDS ORDERED: AMLODIPINE BESYLATE 5 MG TABLET PO SCH (17:00)
[2024-03-09] MEDS ORDERED: HALOPERIDOL 1 MG TABLET PO SCH (17:00)
[2024-03-09] MEDS ORDERED: DIPHENHYDRAMINE HCL 25 MG CAPSULE PO SCH (21:00)
[2024-03-09] MEDS ORDERED: BUDESONIDE 0.5 MG/2 ML AMPUL.NEB IH SCH (21:00)
[2024-03-09] MEDS ORDERED: GABAPENTIN 300 MG CAPSULE PO SCH (21:00)
[2024-03-10 03:09] VITALS: BP 114/61; O2SAT 95
[2024-03-10 06:27] VITALS: O2SAT 90
[2024-03-10] MEDS ORDERED: LOSARTAN POTASSIUM 50 MG TABLET PO SCH (09:00)
[2024-03-10] MEDS ORDERED: PANTOPRAZOLE SODIUM 40 MG/VIAL VIAL IV PUSH SCH (09:00)
[2024-03-10] MEDS ORDERED: levoFLOXacin IN DEXTROSE 5 % 100 ML IV SCH (09:00)
[2024-03-10] MEDS ORDERED: METOPROLOL SUCCINATE 25 MG TAB.SR.24H PO SCH (09:00)
[2024-03-10] MEDS ORDERED: FLUCONAZOLE IN NACL,ISO-OSM 100 ML IV SCH (09:00)
[2024-03-10] MEDS ORDERED: ENOXAPARIN SODIUM 40 MG/0.4 ML SYRINGE SUBCUTANEO SCH (09:00)
[2024-03-10] MEDS ORDERED: ISOSORBIDE MONONITRATE 30 MG TABLET PO SCH (09:00)
[2024-03-10 09:56] VITALS: BP 110/55; O2SAT 97
[2024-03-10 16:15] LABS: T4 FREE 2.02 NG/ML (0.76-1.46); TSH < 0.005 uIU/mL (0.358-3.74)
[2024-03-10 17:21] VITALS: O2SAT 95
[2024-03-10 18:03] VITALS: BP 175/85; O2SAT 98
[2024-03-10 19:37] VITALS: O2SAT 96
[2024-03-11] VITALS (9 sets, daily range): BP systolic 120–140; BP diastolic 60–76; O2SAT 81–100
[2024-03-11] MEDS ORDERED: FUROsemide 20 MG TABLET PO SCH (10:00)
[2024-03-11] MEDS ORDERED: METHIMAZOLE 10 MG TABLET PO SCH (10:13)
[2024-03-11] MEDS ORDERED: PANTOPRAZOLE SODIUM 40 MG TABLET.DR PO SCH (10:15)
[2024-03-11 12:31] LABS: FREE TRIODOTIRONINE 5.45 pg/ml (2.18-3.98); TSH < 0.005 uIU/mL (0.358-3.74)
[2024-03-11 12:45] LABS: T4 FREE 1.88 NG/ML (0.76-1.46)
[2024-03-12] VITALS (8 sets, daily range): BP systolic 117–158; BP diastolic 66–80; O2SAT 97–99
[2024-03-12] MEDS ORDERED: EMOLLIENTS 6 OZ BOTTLE TOP SCH (09:00)
[2024-03-12] MEDS ORDERED: ISOSORBIDE MONO30 MG PO (18:17)
[2024-03-12] MEDS ORDERED: FUROSEMIDE20 MG PO (18:18)
[2024-03-12] MEDS ORDERED: COZAAR50 MG PO (18:18)
[2024-03-12] MEDS ORDERED: METHIMAZOLE10 MG PO (18:19)
[2024-03-12] MEDS ORDERED: TOPROL XL50 M1 PO (18:20)
[2024-03-13 18:04] LABS: anti thy < 1.0 IU/mL (0.0-0.9); tpo 18 IU/mL (0-34)
== END 2024-03-12 19:15 | disposition home or self-care (01) | DRG 292 ==
LOC: ER 19:43 → MEDI 03-07 18:35
PROVIDERS: General Practice; ADMIT Internal Medicine; ATTEND Internal Medicine
PROC: BW24ZZZ Computerized Tomography (CT Scan) of Chest and Abdomen (ICD-10-PCS; principal; 2024-03-07)
PROC: 4A12X4Z Monitoring of Cardiac Electrical Activity, External Approach (ICD-10-PCS; 2024-03-08)
PROC: 02HV33Z Insertion of Infusion Device into Superior Vena Cava, Percutaneous Approach (ICD-10-PCS; 2024-03-09)
PROC: B24BYZZ Ultrasonography of Heart with Aorta using Other Contrast (ICD-10-PCS; 2024-03-10)
DX: I50.9 Heart failure, unspecified (principal); J45.901 Unspecified asthma with (acute) exacerbation; L03.116 Cellulitis of left lower limb; J90 Pleural effusion, not elsewhere classified; N17.9 Acute kidney failure, unspecified; R79.89 Other specified abnormal findings of blood chemistry; I11.0 Hypertensive heart disease with heart failure; E05.90 Thyrotoxicosis, unspecified without thyrotoxic crisis or storm

== ENCOUNTER 2024-05-06 12:22 | Outpatient (CLI) | payer OTHER ==
[~2024-05-06 12:22] MED LIST changes: +AMLODIPINE BESY10 MG PO; +COZAAR50 MG PO; +FUROSEMIDE20 MG PO; +ISOSORBIDE MONO30 MG PO; +LOSARTAN POTAS100 MG PO; +METHIMAZOLE10 MG PO; +METOPROLOL SUCC50 MG PO; +SIMVASTATIN20 MG PO; +TOPROL XL50 M1 PO
== END 2024-05-06 12:23 | disposition home or self-care (01) ==
LOC: NUCLEAR 12:22
PROVIDERS: ATTEND Internal Medicine
DX: M81.0 Age-related osteoporosis without current pathological fracture (principal)

== ENCOUNTER 2024-05-21 05:36 | Inpatient (IN) | payer OTHER ==
[~2024-05-21] VITALS: Ht 152.4 cm; Wt 68.0 kg
[2024-05-21] MEDS ORDERED: HYOSCYAMINE SULFATE 0.125 MG TAB.SUBL SL ONE (07:45)
[2024-05-21] MEDS ORDERED: HYOSCYAMINE SULFATE 0.125 MG TAB.SUBL ONE (07:56)
[2024-05-21] MEDS ORDERED: LEVALBUTEROL HCL 1.25 MG/3 ML SOLUTION IH ONE (09:28)
[2024-05-21 09:58] LABS: HEMATOCRIT 38.3 % (36.0-45.00); HEMOGLOBIN 12.4 g/dL (12.0-15.00); MEAN CELL VOLUME 88.8 fL (80.00-100.00); MEAN CORPUSCULAR HEMOGLOBIN 28.7 pg (27.00-32.0); MEAN CORPUSCULAR HGB CONC 32.3 g/dl (32.0-36.0); PLATELET COUNT 158 K/uL (150-450); RED BLOOD COUNT 4.31 M/uL (4.00-6.00)
[2024-05-21] MEDS ORDERED: LEVALBUTEROL HCL 0.63 MG/3 ML SOLUTION IH SCH (10:30)
[2024-05-21] MEDS ORDERED: METHYLPREDNISOLONE SOD SUCC 125 MG VIAL IV ONE (10:30)
[2024-05-21] MEDS ORDERED: METHYLPREDNISOLONE SOD SUCC 125 MG VIAL ONE (10:35)
[2024-05-21] MEDS ORDERED: LEVALBUTEROL HCL 0.63 MG/3 ML SOLUTION IH ONE (10:53)
[2024-05-21 11:30] LABS: ABG PH 7.431 (7.35-7.45); ABG pCO2 33.1 mmHg (35-45); SaO2 95.7 %
[2024-05-21 11:31] LABS: BASE EXCESS -1.9 mmol/l; BICARBONATE 21.5 mmol/l (23-25); Tco2 22.5 mmol/l
[2024-05-21] MEDS ORDERED: MORPHINE SULFATE 4 MG/ML CARTRIDGE IV ONE (12:15)
[2024-05-21 12:17] LABS: URINE APPEARANCE Clear; URINE BILIRRUBIN Negative (NEGATIVE); URINE BLOOD Moderate; URINE COLOR Yellow; URINE GLUCOSE Negative (NEGATIVE); URINE LEUKOCYTE Negative; URINE NITRATE Negative; URINE PROTEIN >=1000 (NEGATIVE); URINE UROBILINOGEN 0.2 E.U./dl
[2024-05-21 12:21] LABS: URINE BACTERIA 998.7 uL (0.0-1933); URINE CAST 3.24 uL (0.0-1.40); URINE EPITHELIAL CELLS 69.3 uL (0.0-38.8); URINE RBC 88.8 uL (0.0-20.8); URINE WBC 26.4 uL (0.0-23.2)
[2024-05-21 12:37] LABS: URINE KETONE 40 (NEGATIVE)
[2024-05-21 17:31] LABS: ALBUMIN 3.4 gm/dL (3.4-5.0); BILIRUBIN TOTAL 0.68 mg/dL (0.3-1.2); CALCIUM 9.8 mg/dL (8.5-10.1); CREATININE SERUM 0.92 mg/dL (0.55-1.02); GFR 57.48; GLOBULINA 4.9 G/DL (2.4-3.5); POTASSIUM 3.56 mEq/L (3.5-5.1); TOTAL PROTEIN 8.3 gm/dL (6.4-8.2)
[2024-05-21] MEDS ORDERED: BENZONATATE 100 MG CAPSULE PO SCH (18:58)
[2024-05-21] MEDS ORDERED: 0.9 % SODIUM CHLORIDE 1,000 ML IV SCH (19:00)
[2024-05-21] MEDS ORDERED: ACETAMINOPHEN 500 MG GEL..CAP PO PRN (19:00)
[2024-05-21] MEDS ORDERED: levoFLOXacin IN DEXTROSE 5 % 150 ML IV SCH (19:55)
[2024-05-21] MEDS ORDERED: LEVALBUTEROL HCL 1.25 MG/3 ML SOLUTION IH SCH (21:00)
[2024-05-21] MEDS ORDERED: IPRATROPIUM BROMIDE 0.5 MG/2.5 ML AMPUL.NEB IH SCH (21:00)
[2024-05-21] MEDS ORDERED: METHYLPREDNISOLONE SOD SUCC 40 MG VIAL IV SCH (21:00)
[2024-05-21 23:04] LABS: INR 1.21; PARTIAL THROMBOPLASTIN TIME 24.2 SECONDS (22.0-34.0)
[2024-05-22 02:59] VITALS: BP 166/92; O2SAT 95
[2024-05-22 08:00] VITALS: BP 137/84; BP 152/79
[2024-05-22] MEDS ORDERED: FUROsemide 20 MG/2 ML VIAL IV SCH (09:00)
[2024-05-22] MEDS ORDERED: LOSARTAN POTASSIUM 50 MG TABLET PO SCH (09:00)
[2024-05-22] MEDS ORDERED: ISOSORBIDE MONONITRATE 30 MG TABLET PO SCH (09:00)
[2024-05-22] MEDS ORDERED: FAMOTIDINE/PF 20 MG in 0.9 % SODIUM CHLORIDE 8 ML IV PUSH SCH (09:00)
[2024-05-22] MEDS ORDERED: ENOXAPARIN SODIUM 40 MG/0.4 ML SYRINGE SUBCUTANEO SCH (09:00)
[2024-05-22] MEDS ORDERED: METOPROLOL SUCCINATE 25 MG TAB.SR.24H PO SCH (09:00)
[2024-05-22 16:52] VITALS: BP 162/59
[2024-05-22] MEDS ORDERED: SIMVASTATIN 20 MG TABLET PO SCH (17:00)
[2024-05-23 02:07] VITALS: BP 133/69; O2SAT 100
[2024-05-23] MEDS ORDERED: FUROsemide 20 MG/2 ML VIAL IV SCH (05:00)
[2024-05-23 12:00] VITALS: BP 140/62; O2SAT 99
[2024-05-23 17:17] VITALS: BP 157/65
[2024-05-23] MEDS ORDERED: MELATONIN 5 MG TABLET PO SCH (21:30)
[2024-05-24] MEDS ORDERED: LEVALBUTEROL HCL 1.25 MG/3 ML SOLUTION IH SCH
[2024-05-24 01:00] VITALS: BP 135/72
[2024-05-24] MEDS ORDERED: IPRATROPIUM BROMIDE 0.5 MG/2.5 ML AMPUL.NEB IH SCH (02:00)
[2024-05-24] MEDS ORDERED: levoFLOXacin IN DEXTROSE 5 % 150 ML IV SCH (09:00)
[2024-05-24 09:50] VITALS: BP 131/73; O2SAT 98
[2024-05-24 16:41] VITALS: BP 143/80
[2024-05-25 02:41] VITALS: BP 140/82; O2SAT 97
[2024-05-25 08:25] VITALS: BP 149/82; O2SAT 98
[2024-05-25 17:05] VITALS: BP 150/75; O2SAT 97
== END 2024-05-25 19:42 | disposition home or self-care (01) | DRG 194 ==
LOC: ER 05:36 → MEDJ 19:37
PROVIDERS: Emergency Medicine; General Practice; ADMIT Internal Medicine; ATTEND Internal Medicine
PROC: BB24ZZZ Computerized Tomography (CT Scan) of Bilateral Lungs (ICD-10-PCS; principal; 2024-05-21)
PROC: B246ZZZ Ultrasonography of Right and Left Heart (ICD-10-PCS; 2024-05-22)
PROC: 3E0F7GC Introduction of Other Therapeutic Substance into Respiratory Tract, Via Natural or Artificial Opening (ICD-10-PCS; 2024-05-22)
DX: J18.9 Pneumonia, unspecified organism (principal); J45.41 Moderate persistent asthma with (acute) exacerbation; I11.0 Hypertensive heart disease with heart failure; I50.9 Heart failure, unspecified; R09.02 Hypoxemia; E03.8 Other specified hypothyroidism